=== PATIENT | female | born 1995 | race American Indian/Alaskan Native ===

== ENCOUNTER 2018-08-16 17:51 | Emergency (ER) | payer MEDICAID ==
[2018-08-16 20:39] LABS: Bacteria,Urine 1+ /HPF (Negative); Bilirubin,Urine NEG (Negative); Blood,Urine NEG (Negative); Color,Urine Amber (Yellow); Mucus,Urine 3+ /HPF
--- NOTE | 2018-08-16 20:56 | Emergency Department Report ---
ED Female HPI - General Chief complaint: Urogenital-Female Stated complaint: FREQUENT BATHROOM VISITS Time Seen by Provider: 08/16/18 20:49 Source: patient Mode of arrival: Ambulatory Limitations: No Limitations - History of Present Illness Initial comments: 23-year-old female comes to the emergency room for frequent urination since last PM. Patient denies any diabetes denies any dysuria denies any fever chills no nausea no vomiting or abdominal pain. Has no past medical history takes no medications on a daily basis and has a sulfa allergy. -: During the night Improves with: none Associated Symptoms: other (urinary frequency). denies: vaginal discharge, vaginal bleeding, abdominal pain, nausea/vomiting, fever/chills - Related Data Previous Rx's Medication Instructions Recorded Last Taken Type Nitrofurantoin [place]/M-Cryst 100 mg PO Q12HR #14 capsule 08/16/18 Unknown Rx [Macrobid CAP] Allergies Allergy/AdvReac Type Severity Reaction Status Date / Time Sulfa (Sulfonamide Allergy Intermediate Rash Verified 08/16/18 17:54 Antibiotics) ED Review of Systems ROS: Stated complaint: FREQUENT BATHROOM VISITS Other details as noted in HPI Comment: All other systems reviewed and negative Genitourinary: urgency, frequency. denies: dysuria ED Past Medical Hx - Past Medical History Previous Medical History?: No Hx Hypertension: No Hx CVA: No Hx Heart Attack/AMI: No Hx Congestive Heart Failure: No Hx Diabetes: No Hx Deep Vein Thrombosis: No Hx Pulmonary Embolism: No Hx GERD: No Hx Liver Disease: No Hx Renal Disease: No Hx Sickle Cell Disease: No Hx Arthritis: No Hx Headaches / Migraines: No Hx Seizures: No Hx Kidney Stones: No Hx Psychiatric Treatment: No Hx Asthma: No Hx COPD: No Hx Tuberculosis: No Hx Dementia: No Hx HIV: No Additional medical history: Vaginal delivery - Surgical History Past Surgical History?: No Hx Coronary Stent: No Hx Open Heart Surgery: No Hx Pacemaker: No Hx Internal Defibrillator: No Hx Cholecystectomy: No Hx Appendectomy: No Hx Breast Surgery: No - Social History Smoking Status: Never Smoker Substance Use Type: None - Medications Home Medications: Home Medications Medication Instructions Recorded Confirmed Last Taken Type Nitrofurantoin [place]/M-Cryst 100 mg PO Q12HR #14 capsule 08/16/18 Unknown Rx [Macrobid CAP] ED Physical Exam - General Limitations: No Limitations General appearance: alert, in no apparent distress - Head Head exam: Present: atraumatic, normocephalic - Eye Eye exam: Present: normal appearance - ENT ENT exam: Present: mucous membranes moist - Neck Neck exam: Present: normal inspection - Respiratory Respiratory exam: Present: normal lung sounds bilaterally. Absent: respiratory distress - Cardiovascular Cardiovascular Exam: Present: regular rate, normal rhythm. Absent: systolic murmur, diastolic murmur, rubs, gallop - GI/Abdominal GI/Abdominal exam: Present: soft, normal bowel sounds - Extremities Exam Extremities exam: Present: normal inspection - Back Exam Back exam: Present: normal inspection - Neurological Exam Neurological exam: Present: alert, oriented X3 - Psychiatric Psychiatric exam: Present: normal affect, normal mood - Skin Skin exam: Present: warm, dry, intact, normal color. Absent: rash ED Course Vital Signs 08/16/18 17:59 Temperature 98.8 F Pulse Rate 100 H Respiratory 16 Rate Blood Pressure 108/64 O2 Sat by Pulse 95 Oximetry ED Medical Decision Making - Medical Decision Making Patient has been evaluated by this provider fast track. Urinalysis shows patient has 34 wbc's and 1+ bacteria trace leukocyte esterase. Will treat patient for urinary tract infection with Macrobid 100 mg by mouth twice a day for 7 days. Instructed patient to increase her fluid intake and advance her diet as tolerated. Critical care attestation.: If time is entered above; I have spent that time in minutes in the direct care of this critically ill patient, excluding procedure time. ED Disposition Clinical Impression: UTI (urinary tract infection) Disposition: DC-01 TO HOME OR SELFCARE Is pt being admited?: No Does the pt Need Aspirin: No Condition: Stable Instructions: Urinary Tract Infection in Women (ED) Additional Instructions: Complete antibiotics as prescribed. Increase her water intake. All of which a primary care provider if symptoms persist or gets worse. Prescriptions: Nitrofurantoin [place]/M-Cryst [Macrobid CAP] 100 mg PO Q12HR #14 capsule Referrals: SARIKA MCCRARY MD [Primary Care Provider] - 3-5 Days
[2018-08-16 21:07] VITALS: BP 108/60
== END 2018-08-16 21:07 | disposition home or self-care (01) ==
LOC: ED 17:51
DX: N39.0 Urinary tract infection, site not specified (principal); Z88.2 Allergy status to sulfonamides
CPT/HCPCS: 81001; 87086

== ENCOUNTER 2019-10-03 13:15 | Emergency (ER) | payer MEDICAID ==
[2019-10-03 13:50] VITALS: BP 115/68
--- NOTE | 2019-10-03 14:17 | Emergency Department Report ---
- General Chief complaint: Wound/Laceration Stated complaint: RT ARM PACKING NEEDS TO BE CHANGED Time Seen by Provider: 10/03/19 14:17 Source: patient Mode of arrival: Ambulatory Limitations: No Limitations - History of Present Illness Initial comments: Patient is a 24-year-old female presents emergency room for packing removal from an I&D that was performed on 09/29/2019. She was advised to return in 2 days but states that she was busy and could not get in until today. She states that it has been improving. She states that she has had just a small amount of drainage. She denies any fever, increased pain, increased swelling, vomiting. She states that she has been taking the Keflex that was prescribed by her doctor. She denies any past medical history or allergies to medications. - Related Data Previous Rx's Medication Instructions Recorded Last Taken Type Nitrofurantoin [place]/M-Cryst 100 mg PO Q12HR #14 capsule 08/16/18 Unknown Rx [Macrobid CAP] Doxycycline Hyclate [Doxycycline 100 mg PO BID 7 Days #14 tab 10/03/19 Unknown Rx Hyclate TAB] Allergies Allergy/AdvReac Type Severity Reaction Status Date / Time Sulfa (Sulfonamide Allergy Intermediate Rash Verified 08/16/18 17:54 Antibiotics) Abscess Boil HPI - HPI Chief Complaint: Wound/Laceration Stated Complaint: RT ARM PACKING NEEDS TO BE CHANGED Time Seen by Provider: 10/03/19 14:17 Home Medications: Previous Rx's Medication Instructions Recorded Last Taken Type Nitrofurantoin [place]/M-Cryst 100 mg PO Q12HR #14 capsule 08/16/18 Unknown Rx [Macrobid CAP] Doxycycline Hyclate [Doxycycline 100 mg PO BID 7 Days #14 tab 10/03/19 Unknown Rx Hyclate TAB] Allergies/Adverse Reactions: Allergies Allergy/AdvReac Type Severity Reaction Status Date / Time Sulfa (Sulfonamide Allergy Intermediate Rash Verified 08/16/18 17:54 Antibiotics) ED Review of Systems ROS: Stated complaint: RT ARM PACKING NEEDS TO BE CHANGED Other details as noted in HPI Comment: All other systems reviewed and negative ED Past Medical Hx - Past Medical History Previous Medical History?: Yes Hx Hypertension: No Hx CVA: No Hx Heart Attack/AMI: No Hx Congestive Heart Failure: No Hx Diabetes: No Hx Deep Vein Thrombosis: No Hx Pulmonary Embolism: No Hx GERD: No Hx Liver Disease: No Hx Renal Disease: No Hx Sickle Cell Disease: No Hx Arthritis: No Hx Headaches / Migraines: No Hx Seizures: No Hx Kidney Stones: No Hx Psychiatric Treatment: No Hx Asthma: No Hx COPD: No Hx Tuberculosis: No Hx Dementia: No Hx HIV: No Additional medical history: Vaginal delivery - Surgical History Past Surgical History?: Yes Hx Coronary Stent: No Hx Open Heart Surgery: No Hx Pacemaker: No Hx Internal Defibrillator: No Hx Cholecystectomy: No Hx Appendectomy: No Hx Breast Surgery: No - Social History Smoking Status: Current Every Day Smoker Substance Use Type: None - Medications Home Medications: Home Medications Medication Instructions Recorded Confirmed Last Taken Type Nitrofurantoin [place]/M-Cryst 100 mg PO Q12HR #14 capsule 08/16/18 Unknown Rx [Macrobid CAP] Doxycycline Hyclate [Doxycycline 100 mg PO BID 7 Days #14 tab 10/03/19 Unknown Rx Hyclate TAB] ED Physical Exam - General Limitations: No Limitations General appearance: alert, in no apparent distress - Head Head exam: Present: atraumatic, normocephalic - Eye Eye exam: Present: normal appearance - ENT ENT exam: Present: mucous membranes moist - Neurological Exam Neurological exam: Present: alert, oriented X3 - Psychiatric Psychiatric exam: Present: normal affect, normal mood - Skin Skin exam: Present: warm, dry, other (there is packing present in the right axilla, no active drainage, no erythema or induration to the area of the I&D, above this area there is a small amount of erytema and induration but no fluctuance to the right axilla, there is also erythema and small area of induration to the left axilla without central fluctuance, no necrosis, no blistering, no skin denuding, no active drainage) ED Course Vital Signs 10/03/19 13:49 Temperature 98.0 F Pulse Rate 81 Respiratory 12 Rate Blood Pressure 115/68 O2 Sat by Pulse 99 Oximetry ED Medical Decision Making - Medical Decision Making Patient is a 24-year-old female presents emergency room for packing removal from an I&D that was performed on 09/29/2019. She was advised to return in 2 days but states that she was busy and could not get in until today. She states that it has been improving. She states that she has had just a small amount of drainage. She denies any fever, increased pain, increased swelling, vomiting. She states that she has been taking the Keflex that was prescribed by her doctor. She denies any past medical history or allergies to medications. vss. on exam: there is packing present in the right axilla, no active drainage, no erythema or induration to the area of the I&D, above this area there is a small amount of erytema and induration but no fluctuance to the right axilla, there is also erythema and small area of induration to the left axilla without central fluctuance, no necrosis, no blistering, no skin denuding, no active drainage. Packing removed without any difficulty, there is no drainage, irrigated with saline and scrubbed with Betadine, and sterile dressing applied. Site of I&D appears clean dry intact with 1.5 cm opening. It appears patient has hidradenitis suprativa, she has signs of cellulitis in the bilateral axilla but no signs of drainable abscess at this time. Patient will be placed on doxycycline, and advised to stop Keflex. Discussed wound care and using warm compresses. Advised patient Please stop taking Keflex and begin taking doxycycline. Please use warm compresses for 10 minutes at a time 3 times a day. Please wash around area with soap and water and immediately dry and change dressing. Follow-up with your primary care doctor in 3 days for reexamination. Return to emergency room immediately for any new or worsening symptoms including but not limited to worsening swelling, worsening redness, increasing drainage, fever, chills, vomiting, etc. Critical care attestation.: If time is entered above; I have spent that time in minutes in the direct care of this critically ill patient, excluding procedure time. ED Disposition Clinical Impression: Abscess packing removal Cellulitis Qualifiers: Site of cellulitis: extremity Site of cellulitis of extremity: axilla Laterality: unspecified laterality Qualified Code(s): L03.119 - Cellulitis of unspecified part of limb Disposition: TO HOME OR SELFCARE Is pt being admited?: No Does the pt Need Aspirin: No Condition: Stable Instructions: Cellulitis (ED), Acute Wound Care (ED) Additional Instructions: Please stop taking Keflex and begin taking doxycycline. Please use warm compresses for 10 minutes at a time 3 times a day. Please wash around area with soap and water and immediately dry and change dressing. Follow-up with your primary care doctor in 3 days for reexamination. Return to emergency room immediately for any new or worsening symptoms including but not limited to worsening swelling, worsening redness, increasing drainage, fever, chills, vomiting, etc. Prescriptions: Doxycycline Hyclate [Doxycycline Hyclate TAB] 100 mg PO BID 7 Days #14 tab Referrals: KATTY IBARRA MD [Staff Physician] - 2-3 Days [facility] [Provider Group] - 2-3 Days [facility] [Outside] - 2-3 Days Time of Disposition: 14:28 Print Language: COLOMBIAN
== END 2019-10-03 14:45 | disposition home or self-care (01) ==
LOC: ED 13:15
DX: L03.111 Cellulitis of right axilla (principal); F17.200 Nicotine dependence, unspecified, uncomplicated; Z79.899 Other long term (current) drug therapy; Z88.2 Allergy status to sulfonamides
CPT/HCPCS: 99282

== ENCOUNTER 2020-12-24 11:54 | Emergency (ER) | payer MEDICAID ==
--- NOTE | 2020-12-24 12:29 | Emergency Department Report ---
ED Psych HPI - General Chief Complaint: Psych Stated Complaint: SUICIDAL Time Seen by Provider: 12/24/20 12:21 Source: patient Mode of arrival: Ambulatory - History of Present Illness Initial Comments: Patient is 25-year-old female with history of schizophrenia. Patient brought to the ER by Police Department for mental health evaluation. Patient stated that she was fighting with her mother this morning and she was very loud and she called the police for. Patient is currently denying any suicidal or homicidal ideation. She also denied any visual or auditory hallucination. Patient is quiet and calm. Complaint: other -: Sudden, This morning Associated Psychiatric Symptoms: none Associated Symptoms: denies other symptoms Treatments Prior to Arrival: none - Related Data Previous Rx's Medication Instructions Recorded Last Taken Type Nitrofurantoin [place]/M-Cryst 100 mg PO Q12HR #14 capsule 08/16/18 Unknown Rx [Macrobid CAP] Doxycycline Hyclate [Doxycycline 100 mg PO BID 7 Days #14 tab 10/03/19 Unknown Rx Hyclate TAB] Allergies Allergy/AdvReac Type Severity Reaction Status Date / Time Sulfa (Sulfonamide Allergy Intermediate Rash Verified 12/24/20 12:03 Antibiotics) ED Review of Systems ROS: Stated complaint: SUICIDAL Other details as noted in HPI Comment: All other systems reviewed and negative Constitutional: denies: chills, fever Respiratory: denies: cough, shortness of breath, SOB with exertion Cardiovascular: denies: chest pain, palpitations Gastrointestinal: denies: abdominal pain, nausea, vomiting Neurological: denies: headache, weakness, numbness, paresthesias, confusion, abnormal gait Psychiatric: denies: anxiety, depression, auditory hallucinations, visual hallucinations, homicidal thoughts, suicidal thoughts ED Past Medical Hx - Past Medical History Hx Hypertension: No Hx CVA: No Hx Heart Attack/AMI: No Hx Congestive Heart Failure: No Hx Diabetes: No Hx Deep Vein Thrombosis: No Hx Pulmonary Embolism: No Hx GERD: No Hx Liver Disease: No Hx Renal Disease: No Hx Sickle Cell Disease: No Hx Arthritis: No Hx Headaches / Migraines: No Hx Seizures: No Hx Kidney Stones: No Hx Psychiatric Treatment: Yes (bipolar schizophrenia) Hx Asthma: No Hx COPD: No Hx Tuberculosis: No Hx Dementia: No Hx HIV: No Additional medical history: Vaginal delivery - Surgical History Hx Coronary Stent: No Hx Open Heart Surgery: No Hx Pacemaker: No Hx Internal Defibrillator: No Hx Cholecystectomy: No Hx Appendectomy: No Hx Breast Surgery: No - Social History Smoking Status: Never Smoker Substance Use Type: None - Medications Home Medications: Home Medications Medication Instructions Recorded Confirmed Last Taken Type Nitrofurantoin [place]/M-Cryst 100 mg PO Q12HR #14 capsule 08/16/18 Unknown Rx [Macrobid CAP] Doxycycline Hyclate [Doxycycline 100 mg PO BID 7 Days #14 tab 10/03/19 Unknown Rx Hyclate TAB] ED Physical Exam - General Limitations: No Limitations General appearance: alert, in no apparent distress - Head Head exam: Present: atraumatic, normocephalic, normal inspection - Eye Eye exam: Present: normal appearance, PERRL - ENT ENT exam: Present: normal exam, normal orophraynx, mucous membranes moist - Neck Neck exam: Present: normal inspection, full ROM. Absent: tenderness, meningismus, lymphadenopathy, thyromegaly - Respiratory Respiratory exam: Present: normal lung sounds bilaterally - Cardiovascular Cardiovascular Exam: Present: regular rate, normal rhythm, normal heart sounds - GI/Abdominal GI/Abdominal exam: Present: soft, normal bowel sounds. Absent: distended, tenderness, guarding, rebound, rigid, organomegaly, mass, bruit, pulsatile mass, hernia - Extremities Exam Extremities exam: Present: normal inspection, full ROM, normal capillary refill. Absent: tenderness, pedal edema, joint swelling, calf tenderness - Back Exam Back exam: Present: normal inspection, full ROM. Absent: CVA tenderness (R), CVA tenderness (L) - Neurological Exam Neurological exam: Present: alert, oriented X3, CN II-XII intact, normal gait, reflexes normal. Absent: motor sensory deficit - Psychiatric Psychiatric exam: Present: normal mood - Skin Skin exam: Present: warm, intact, normal color ED Course Vital Signs 12/24/20 12/24/20 12/25/20 12:06 20:28 02:18 Temperature 99.2 F 98.6 F 98.6 F Pulse Rate 107 H 78 86 Respiratory 18 18 18 Rate Blood Pressure 138/90 Blood Pressure 114/66 110/63 [Left] O2 Sat by Pulse 95 98 96 Oximetry 12/25/20 07:30 Temperature 98.4 F Pulse Rate 86 Respiratory 18 Rate Blood Pressure Blood Pressure 112/76 [Left] O2 Sat by Pulse 98 Oximetry - Consultations Consultation #1: 12/25/20 12:54 Patient has been evaluated by our psychiatric team and recommended patient to be discharged and follow-up as an outpatient. Patient is alert, oriented x3 no acute distress. Patient denied suicidal or homicidal ideation. No visual or auditory hallucination. Patient is medically and psychiatrically stable for discharge. ED Medical Decision Making - Lab Data Result diagrams: 12/24/20 12:11 12/24/20 12:11 Critical care attestation.: If time is entered above; I have spent that time in minutes in the direct care of this critically ill patient, excluding procedure time. ED Disposition Clinical Impression: Acute psychosis, Suicidal ideation Disposition: HOME / SELF CARE / HOMELESS Is pt being admited?: No Condition: Stable Instructions: Suicidal Feelings: How to Help Yourself Additional Instructions: OUTPATIENT MENTAL HEALTH RESOURCES [facility], [facility] Mary Vasques MD: [address] [facility] [address] [place] [address] [place], [place] [id number] [facility]: [facility] [address] [place] [address] [place] [address] [phone] [facility]: [facility] Healthcare: [address] [facility] [address] [facility] [place] [address] [facility] [id number] [facility]: Rafi Mahan MD: [address] [facility] [address] [facility] [id number] [facility]: [address] [place], [place] [id number] [phone] [place] CRISIS AND ACCESS LINE: Referrals: PRIMARY CAREMD [Primary Care Provider] - 3-5 Days
[2020-12-24 12:53] LABS: Basophils # (Auto) 0.1 K/mm3 (0.0-0.1); Eosinophils # (Auto) 0.2 K/mm3 (0.0-0.4); Eosinophils % (Auto) 2.6 % (0.0-4.3); Hematocrit 38.9 % (30.3-42.9); Hemoglobin 13.5 gm/dl (10.1-14.3); Lymphocytes # (Auto) 2.8 K/mm3 (1.2-5.4); Lymphocytes % (Auto) 29.2 % (13.4-35.0); Mean Corpuscular HGB Conc 35 % (30-34); Mean Corpuscular Volume 89 fl (79-97); Monocytes # (Auto) 0.4 K/mm3 (0.0-0.8); Monocytes % (Auto) 4.3 % (0.0-7.3); Platelet Count 343 K/mm3 (140-440); Red Cell Distribution Width 14.1 % (13.2-15.2)
[2020-12-24 12:56] LABS: Blood Urea Nitrogen 5 mg/dL (7-17); Calcium 9.8 mg/dL (8.4-10.2); Hemolysis Index 15
[2020-12-24 13:05] LABS: BUN/Creatinine Ratio 7
[2020-12-24 15:16] LABS: Bacteria,Urine 2+ /HPF (Negative); Bilirubin,Urine NEG (Negative); Blood,Urine SM (Negative); Color,Urine Yellow (Yellow); Mucus,Urine FEW /HPF; Protein,Urine <15 mg/dL mg/dL (Negative); Urobilinogen,Urine < 2.0 mg/dL (<2.0)
[2020-12-24 15:20] LABS: Amphetamine Screen,Urine Negative; Benzodiazepines Screen,Urine Negative; Cannabinoid Screen,Urine Negative; Methadone Screen,Urine Negative; Opiate Screen,Urine Negative
[2020-12-24 15:42] LABS: Cocaine Screen,Urine Positive
--- NOTE | 2020-12-25 10:30 | Event Note ---
Date: 12/25/20 Patient is 25-year-old female admitted with acute psychosis and suicidal ideation. Patient remained calm and in no acute distress. Vital signs stable. Labs reviewed and is unremarkable. Waiting for inpatient psychiatric admission.
--- NOTE | 2020-12-25 10:53 | Consultation ---
History of Present Illness - Reason for Consult Consult date: 12/25/20 Reason for consult: Mental health evaluation - History of Present Psychiatric Illness Per ED Note: Patient is 25-year-old female with history of schizophrenia. Patient brought to the ER by Police Department for mental health evaluation. Patient stated that she was fighting with her mother this morning and she was very loud and she called the police for. Patient is currently denying any suicidal or homicidal ideation. She also denied any visual or auditory hallucination. Patient is quiet and calm. Suyapa Moore is a 25 year old female with history of Schizophrenia and Bipolar disorder who presents to the ED for mental health Evaluation. In my interview with the patient, she is calm. The patient reports that she got into an altercation with her mother. The patient states she sees a psychiatrist Dr. Reed ( [facility] [place]) and that she is compliant with psychotropic medications. She denies any current suicidal/homicidal ideation and denies hallu cinations. PAST PSYCHIATRIC HISTORY: Diagnoses:Schizophrenia, Bipolar disorder Suicide attempts or Self-harm behavior: Denies Prior psychiatric hospitalizations:Denies Substance Abuse history: Denies Previous psychiatric medications tried: Unknown Outpatient treatment:Yes PAST MEDICAL HISTORY: None reported or document Family Psychiatric History: None reported or documented SOCIAL HISTORY Marital Status: Single Living Arrangements: Lives with Mother Employment Status:unemployed Access to guns/weapons: Denies Education:12th grade History of Abuse:Denies Legal History: Denies REVIEW OF SYSTEMS Constitutional: Negative for weight loss ENT: Negative for stridor Respiratory: Negative for cough or hemoptysis All other systems reviewed and are negative MENTAL STATUS EXAMINATION General Appearance and Behavior: Age appropriate, good hygiene, wearing appropriate clothes. Cooperation: Cooperative Psychomotor Behavior: Psychomotor normal Mood:Ok Affect and affective range: Congruent with stated mood Thought Process: Goal Directed Thought Content:Not Suicidal Speech: Normal volume, Regular rate and rhythm, Suicidal Ideation: Denies Homicidal Ideation: Yes Hallucinations: Denies Delusions:Denies Impulse Control: Unimpaired Insight and Judgment: Limited, Fair judgment Memory: Normal Attention:Distractible Orientation: alert and oriented Assessment and Plan (1) Bipolar Disorder Continue home meds Current Visit: Yes Status: Acute The patient to comply with previously prescribed medications Risks, benefits and alternatives of medications discussed with the patient, questions answered and consent obtained from patient. PSYCHOTHERAPY: Supportive psychotherapy provided MEDICAL: Per primary team DELIRIUM PRECAUTIONS: Please re-orient patient frequently, keep lights on during the day, and minimize benzodiazepines and opiates as these medications could worsen patient's confusion. 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 The patient knows that if suicidal/homicidal ideation or any endangering thoughts arise to seek for emergent assistance including but not limited to crisis hot line and emergency room. [facility] will provide patient with out patient resources. FOLLOW-UP: Will sign off. Case staffed with Dr. Montgomery Please contact with any questions and/or concerns. Thank you for the consult. Medications and Allergies Allergies Allergy/AdvReac Type Severity Reaction Status Date / Time Sulfa (Sulfonamide Allergy Intermediate Rash Verified 12/24/20 12:03 Antibiotics) Home Medications Medication Instructions Recorded Confirmed Last Taken Type Nitrofurantoin [place]/M-Cryst 100 mg PO Q12HR #14 capsule 08/16/18 Unknown Rx [Macrobid CAP] Doxycycline Hyclate [Doxycycline 100 mg PO BID 7 Days #14 tab 10/03/19 Unknown Rx Hyclate TAB] Mental Status Exam - Vital signs Last Vital Signs Temp 98.6 F 12/25/20 02:18 Pulse 86 12/25/20 02:18 Resp 18 12/25/20 02:18 BP 110/63 12/25/20 02:18 Pulse Ox 96 12/25/20 02:18 Results Result Diagrams: 12/24/20 12:11 12/24/20 12:11 Abnormal lab results 12/24/20 12/24/20 12/24/20 Range/Units 12:11 12:11 12:11 MCHC 35 H (30-34) % Sodium 136 L (137-145) mmol/L Carbon Dioxide 21 L (22-30) mmol/L BUN 5 L (7-17) mg/dL Glucose 103 H (65-100) mg/dL Salicylates < 0.3 L (2.8-20.0) mg/dL Acetaminophen (10.0-30.0) ug/mL 12/24/20 Range/Units 12:11 MCHC (30-34) % Sodium (137-145) mmol/L Carbon Dioxide (22-30) mmol/L BUN (7-17) mg/dL Glucose (65-100) mg/dL Salicylates (2.8-20.0) mg/dL Acetaminophen 5.0 L (10.0-30.0) ug/mL All other labs normal.
[2020-12-25 13:29] VITALS: BP 109/52
== END 2020-12-25 13:29 | disposition home or self-care (01) ==
LOC: ED 11:54
DX: F23 Brief psychotic disorder (principal); R45.851 Suicidal ideations; F25.0 Schizoaffective disorder, bipolar type; F20.9 Schizophrenia, unspecified; Z88.2 Allergy status to sulfonamides
CPT/HCPCS: 36415; 80048; 80307; 80320; 81001; 84703; 85025; 99284; G0480

== ENCOUNTER 2022-01-05 03:15 | Emergency (ER) | payer MEDICAID ==
[2022-01-05 04:14] LABS: Basophils # (Auto) 0.1 K/mm3 (0.0-0.1); Basophils % (Auto) 0.5 % (0.0-1.8); Blood Urea Nitrogen 9 mg/dL (7-17); Calcium 9.2 mg/dL (8.4-10.2); Eosinophils # (Auto) 0.2 K/mm3 (0.0-0.4); Eosinophils % (Auto) 1.7 % (0.0-4.3); Hemoglobin 12.9 gm/dl (10.1-14.3); Hemolysis Index 7; Lymphocytes # (Auto) 3.2 K/mm3 (1.2-5.4); Lymphocytes % (Auto) 29.6 % (13.4-35.0); Mean Corpuscular HGB Conc 35 % (30-34); Mean Corpuscular Volume 89 fl (79-97); Monocytes # (Auto) 0.8 K/mm3 (0.0-0.8); Monocytes % (Auto) 7.3 % (0.0-7.3); Platelet Count 358 K/mm3 (140-440); Red Blood Count 4.15 M/mm3 (3.65-5.03); Red Cell Distribution Width 14.2 % (13.2-15.2)
[2022-01-05 04:16] LABS: Amphetamine Screen,Urine Negative; Benzodiazepines Screen,Urine Negative; Cannabinoid Screen,Urine Negative; Methadone Screen,Urine Negative; Opiate Screen,Urine Negative
[2022-01-05 04:35] LABS: Cocaine Screen,Urine Positive
[2022-01-05 04:41] LABS: Bacteria,Urine 4+ /HPF (Negative); Mucus,Urine FEW /HPF
[2022-01-05 04:43] LABS: BUN/Creatinine Ratio 15
[2022-01-05 05:10] LABS: Color,Urine Yellow (Yellow)
--- NOTE | 2022-01-05 11:57 | Emergency Department Report ---
ED Psych HPI - General Chief Complaint: Psych Stated Complaint: MENTAL HEALTH/HALLUCINATIONS Time Seen by Provider: 01/05/22 11:14 Source: patient Mode of arrival: Ambulatory - History of Present Illness Initial Comments: Patient is a 26-year-old female with history of bipolar disorder and recent psychiatric admission presenting with complaint of auditory, visual and tactile hallucinations. He was released from psychiatric facility 2 days ago. Mother reports agitation and severe lack of sleep. - Related Data Previous Rx's Medication Instructions Recorded Last Taken Type Nitrofurantoin [place]/M-Cryst 100 mg PO Q12HR #14 capsule 08/16/18 Unknown Rx [Macrobid CAP] Doxycycline Hyclate [Doxycycline 100 mg PO BID 7 Days #14 tab 10/03/19 Unknown Rx Hyclate TAB] Allergies Allergy/AdvReac Type Severity Reaction Status Date / Time Sulfa (Sulfonamide Allergy Intermediate Rash Verified 12/24/20 12:03 Antibiotics) ED Review of Systems ROS: Stated complaint: MENTAL HEALTH/HALLUCINATIONS Other details as noted in HPI Constitutional: denies: chills, fever Respiratory: denies: cough, shortness of breath, wheezing Cardiovascular: denies: chest pain, palpitations Gastrointestinal: denies: abdominal pain, nausea, diarrhea Genitourinary: denies: urgency, dysuria, discharge Musculoskeletal: denies: back pain, joint swelling, arthralgia Skin: denies: rash, lesions Neurological: denies: headache, weakness, paresthesias Psychiatric: anxiety, auditory hallucinations, visual hallucinations ED Past Medical Hx - Past Medical History Hx Hypertension: No Hx CVA: No Hx Heart Attack/AMI: No Hx Congestive Heart Failure: No Hx Diabetes: No Hx Deep Vein Thrombosis: No Hx Pulmonary Embolism: No Hx GERD: No Hx Liver Disease: No Hx Renal Disease: No Hx Sickle Cell Disease: No Hx Arthritis: No Hx Headaches / Migraines: No Hx Seizures: No Hx Kidney Stones: No Hx Psychiatric Treatment: Yes (bipolar schizophrenia) Hx Asthma: No Hx COPD: No Hx Tuberculosis: No Hx Dementia: No Hx HIV: No Additional medical history: Vaginal delivery - Surgical History Hx Coronary Stent: No Hx Open Heart Surgery: No Hx Pacemaker: No Hx Internal Defibrillator: No Hx Cholecystectomy: No Hx Appendectomy: No Hx Breast Surgery: No - Social History Smoking Status: Current Every Day Smoker Substance Use Type: None - Medications Home Medications: Home Medications Medication Instructions Recorded Confirmed Last Taken Type Nitrofurantoin [place]/M-Cryst 100 mg PO Q12HR #14 capsule 08/16/18 Unknown Rx [Macrobid CAP] Doxycycline Hyclate [Doxycycline 100 mg PO BID 7 Days #14 tab 10/03/19 Unknown Rx Hyclate TAB] ED Physical Exam - General Limitations: No Limitations General appearance: alert, in no apparent distress - Head Head exam: Present: atraumatic, normocephalic - Respiratory Respiratory exam: Present: normal lung sounds bilaterally. Absent: respiratory distress - Cardiovascular Cardiovascular Exam: Present: regular rate, normal rhythm, normal heart sounds - GI/Abdominal GI/Abdominal exam: Present: soft. Absent: distended, tenderness - Neurological Exam Neurological exam: Present: alert, oriented X3, CN II-XII intact - Psychiatric Psychiatric exam: Present: anxious - Skin Skin exam: Present: warm, dry, intact, normal color ED Course Vital Signs 01/05/22 01/05/22 03:20 10:28 Temperature 98.4 F Pulse Rate 96 H Respiratory 18 Rate Blood Pressure 133/81 O2 Sat by Pulse 98 98 Oximetry ED Medical Decision Making - Lab Data Result diagrams: 01/05/22 03:25 01/05/22 03:25 Critical care attestation.: If time is entered above; I have spent that time in minutes in the direct care of this critically ill patient, excluding procedure time. ED Disposition Condition: Stable Referrals: KATTY IBARRA MD [Primary Care Provider] - 3-5 Days
--- NOTE | 2022-01-05 14:54 | Event Note ---
Date: 01/05/22 Pt seen this morning with no issue overnight by nursing team. Pt is however still waiting for psychiatry team rounding today. No other modifying or associated factors reported.
--- NOTE | 2022-01-05 17:42 | Consultation ---
History of Present Illness - Reason for Consult Consult date: 01/05/22 Reason for consult: mental health evaluation - Chief Complaint Chief complaint: AVH - History of Present Psychiatric Illness ED NOTE: Patient is a 26-year-old female with history of bipolar disorder and recent psychiatric admission presenting with complaint of auditory, visual and tactile hallucinations. He was released from psychiatric facility 2 days ago. Mother reports agitation and severe lack of sleep. Patient is a 26 year-old female with history of bipolar disorder. Psych was consulted for mental health evaluation. Patient was seen today. Patient initially sleeping but responsive to voice. Patient reports seeing "something scary in my room," 2 to 3 months ago, but is unable to characterize what it was. Patient reports intermittent visual hallucinations in her room only but is unable to characterize hallucinations. Patient reports "something scared me for a couple of months" and "it makes me sick, it makes me tired." Patient denies auditory or visual hallucinations at present. Patient initially denied previous diagnoses and medications but later reports having schizophrenia and taking abilify. Patient reports feeling "good," at this time and denies SI or HI. Patient reports okay sleep and appetite. PAST PSYCHIATRIC HISTORY: Diagnoses: Bipolar disorder, schizophrenia Suicide attempts or Self-harm behavior: Denies Prior psychiatric hospitalizations: Denies Substance Abuse history: Denies Previous psychiatric medications tried: Abilify Outpatient treatment: Denies PAST MEDICAL HISTORY: None reported Family Psychiatric History: None reported SOCIAL HISTORY Marital Status: Single Living Arrangements: With mom Employment Status: Unemployed Access to guns/weapons: Denies Education: high school History of Abuse: Denies Legal History: Denies REVIEW OF SYSTEMS Constitutional: Negative for weight loss ENT: Negative for stridor Respiratory: Negative for cough or hemoptysis All other systems reviewed and are negative MENTAL STATUS EXAMINATION General Appearance and Behavior: Age appropriate, wearing appropriate clothes, cooperative, polite with questioning, poor eye contact Cooperation: cooperative Psychomotor Behavior: Psychomotor normal Mood: "good," Affect and affective range: congruent with stated affect Thought Process: disorganized, tangential Thought Content: delusional Speech: Normal volume, Regular rate and rhythm Suicidal Ideation: Denies Homicidal Ideation: Denies Hallucination: Denies Delusions: Yes Impulse Control: Limited Insight and Judgment: Poor Memory: Intact Attention: Distracted Orientation: Alert and oriented Diagnoses: Schizophrenia Treatment Plan 1013 - Olanzapine 10 mg qhs Medical: Per primary Sitter: Defer to primary Disposition: Recommend acute psychiatric inpatient treatment. Will follow. Thanks Case staffed with Dr. Montgomery. Medications and Allergies Allergies Allergy/AdvReac Type Severity Reaction Status Date / Time Sulfa (Sulfonamide Allergy Intermediate Rash Verified 12/24/20 12:03 Antibiotics) Home Medications Medication Instructions Recorded Confirmed Last Taken Type Nitrofurantoin [place]/M-Cryst 100 mg PO Q12HR #14 capsule 08/16/18 Unknown Rx [Macrobid CAP] Doxycycline Hyclate [Doxycycline 100 mg PO BID 7 Days #14 tab 10/03/19 Unknown Rx Hyclate TAB] Mental Status Exam - Vital signs Last Vital Signs Temp 98.4 F 01/05/22 03:20 Pulse 96 H 01/05/22 03:20 Resp 18 01/05/22 03:20 BP 133/81 01/05/22 03:20 Pulse Ox 98 01/05/22 10:28 Results Result Diagrams: 01/05/22 03:25 01/05/22 03:25 Abnormal lab results 01/05/22 01/05/22 01/05/22 Range/Units 03:25 03:25 03:25 MCHC (30-34) % Sodium 135 L (137-145) mmol/L Carbon Dioxide 20 L (22-30) mmol/L Glucose 102 H (65-100) mg/dL Salicylates < 0.3 L (2.8-20.0) mg/dL Acetaminophen 5.0 L (10.0-30.0) ug/mL 01/05/22 Range/Units 03:25 MCHC 35 H (30-34) % Sodium (137-145) mmol/L Carbon Dioxide (22-30) mmol/L Glucose (65-100) mg/dL Salicylates (2.8-20.0) mg/dL Acetaminophen (10.0-30.0) ug/mL All other labs normal.
--- NOTE | 2022-01-06 12:09 | Event Note ---
Date: 01/06/22 vss , no distress no events overnight medically cleared , assessed by psych , awaiting placement
--- NOTE | 2022-01-06 21:13 | Progress Note ---
Subjective - Reason for Consult Consult date: 01/06/22 Reason for consult: [facility] - Chief Complaint Chief complaint: [facility] Mental Status Exam - Vital signs Last Vital Signs Temp 98.7 F 01/06/22 20:01 Pulse 69 01/06/22 20:01 Resp 16 01/06/22 20:01 BP 100/52 01/06/22 20:01 Pulse Ox 99 01/06/22 20:01 - Exam Narrative exam: Patient was seen today. Patient was alert and oriented x3 and cooperative during interview. Patient reports "I feel better," and reports "I got good spirits." Patient denies SI or HI. Patient non-responsive to questions regarding what she saw in her room that scared her. Patient denies hallucinations at this time. Patient reports she has not spoken with her mom today. Orientation: time, place, person Affect: normal Mood: congruent with affect Thought Process: Intact Perceptions: none Speech: normal rate and pattern Concentration: distractible Motor activity: normal Level of consciousness: alert Memory: Intact Sleep Symptoms: None Interaction: uncooperative Assessment and Plan Diagnoses: Schizophrenia Treatment Plan - d/c 1013 - Continue Olanzapine 10 mg qhs Medical: Per primary Sitter: Defer to primary Disposition: Recommend acute psychiatric inpatient treatment. Pending discharge to outpatient psychiatric services tomorrow assuming overnight uneventful. Will follow. Thanks Case staffed with Dr. Montgomery.
[2022-01-07 10:49] VITALS: BP 105/61
--- NOTE | 2022-01-07 14:40 | Progress Note ---
Subjective - Reason for Consult Consult date: 01/07/22 Reason for consult: mental health evalauation - Chief Complaint Chief complaint: [facility] Mental Status Exam - Vital signs Last Vital Signs Temp 98.2 F 01/07/22 10:48 Pulse 72 01/07/22 10:48 Resp 20 01/07/22 10:48 BP 105/61 01/07/22 10:48 Pulse Ox 98 01/07/22 10:48 - Exam Narrative exam: Patient was seen today. Patient was alert and oriented x3 and cooperative during interview. Patient reports "I feel better." Patient denies feeling depressed and denies suicidal ideation or homicidal ideation. Patient denies hallucinations. Patient reports good sleep and good appetite. Patient reports plan to live with mom. Orientation: time, place, person Affect: normal Mood: appropriate, calm, congruent with affect Thought Process: Intact Perceptions: none Speech: normal rate and pattern Concentration: focused Motor activity: normal Level of consciousness: alert Memory: Intact Sleep Symptoms: None Interaction: cooperative Assessment and Plan Assessment Schizophrenia Treatment Plan - Continue Olanzapine 10 mg qhs; scripts printed, signed, and added to patient's chart - Establish care with outpatient psychiatry Risks, benefits and alternatives of medications discussed with the patient, questions answered and consent obtained from patient. The patient should be compliant with medications, not to use drugs, and not to drink alcohol. The patient understands that if suicidal ideas, homicidal ideas or any endangering feeling arise, the patient should seek assistance including, but not limited to crisis hotline, and emergency room. PSYCHOTHERAPY: Supportive psychotherapy provided MEDICAL: Per primary team LEGAL REFEREE: Defer to primary DISPOSITION: Do not recommend acute inpatient psychiatric hospitalization at this time. Mental health gum sprayer will provide outpatient psychiatric resources and information on drug rehabilitation programs. FOLLOW-UP: Will sign off. Thank you for the consult. Please contact with any questions and/or concerns. Case staffed with Dr. Luan Arcos.
--- NOTE | 2022-01-07 15:32 | Emergency Department Report ---
Blank Doc - Documentation Documentation: Patient is a 26-year-old female with history of bipolar disorder here for rita tory and visual hallucinations has been in the emergency department since 01/05/2022. There have been no acute issues during my shift, and patient is still awaiting decision about disposition.
== END 2022-01-07 16:24 | disposition home or self-care (01) ==
LOC: ED 03:15
DX: R44.0 Auditory hallucinations (principal); R44.1 Visual hallucinations; F31.9 Bipolar disorder, unspecified; F17.200 Nicotine dependence, unspecified, uncomplicated; Z88.1 Allergy status to other antibiotic agents; Z20.822 Contact with and (suspected) exposure to COVID-19
CPT/HCPCS: 36415; 80048; 80307; 81001; 84703; 85025; 99284; U0003; 80320; G0480